=== PATIENT | female | born 1985 ===

== ENCOUNTER 2020-09-11 11:44 | Emergency (ER) | payer MEDICAID ==
[2020-09-11 11:58] VITALS: BP 125/87
[2020-09-11] MEDS ORDERED: TETANUS,DIPH,PERTUSS(ACELL) VACCINE 0.5 ML SYRINGE IM ONE (11:59)
[2020-09-11] MEDS ORDERED: IBUPROFEN 600 MG TAB PO ONE (11:59)
--- NOTE | 2020-09-11 12:49 | Emergency Department Report ---
ED Upper Extremity Inj HPI - General Chief Complaint: Extremity Injury, Upper Stated Complaint: BURNED RT MIDDLE FINGER Source: patient Mode of arrival: Ambulatory Limitations: No Limitations - History of Present Illness Initial Comments: Patient is a 34-year-old -Turkish female with no past medical history presents to the ED with complaint of acute onset persistent severe distal right middle finger pain and swelling with blisters after she accidentally touched a hot radiator of her vehicle as she checked on the engine about 2 hours ago. Patient states that the pain and the swelling have worsened since the injury occurred. Patient states that she is not up-to-date with her tetanus vaccinations. Patient denies dizziness, syncope, chest pain, shortness of breat h, nausea and vomiting, change in vision or loss of consciousness. MD Complaint: Injury to:: right (distal right middle finger burn injury with pain), finger (right middle finger) -: Sudden, hour(s) (2) Other Extremity Injury: Fingers: Right (distal right middle finger blistered burn injury), Hand: Right (right) Other Injuries: none Handedness: right Place: home Severity scale (0 -10): 8 Improves With: cold therapy Worsens With: none Context: injury (burn), burn (scalded ) Associated Symptoms: denies other symptoms. denies: weakness, numbness, neck pain, suspects foreign body, nausea/vomiting, heard/felt popping sensat Treatments Prior to Arrival: cold therapy - Related Data Previous Rx's Medication Instructions Recorded Last Taken Type Acetaminophen/Codeine [Tylenol 1 tab PO Q6H PRN #12 tab 09/11/20 Unknown Rx /Codeine # 3 tab] Bacitracin Zinc Oint [Antibiotic 1 applicatio TP TID #1 tube 09/11/20 Unknown Rx Oint] Ibuprofen [Motrin] 600 mg PO Q8H PRN #30 tablet 09/11/20 Unknown Rx Allergies Allergy/AdvReac Type Severity Reaction Status Date / Time Sulfa (Sulfonamide Allergy Swelling Verified 09/11/20 11:53 Antibiotics) ED Review of Systems ROS: Stated complaint: BURNED RT MIDDLE FINGER Other details as noted in HPI Constitutional: denies: chills, fever Eyes: denies: eye pain, eye discharge, vision change ENT: denies: ear pain, throat pain Respiratory: denies: cough, shortness of breath, wheezing Cardiovascular: denies: chest pain, palpitations Endocrine: no symptoms reported Gastrointestinal: denies: abdominal pain, nausea, vomiting, diarrhea Genitourinary: denies: urgency, dysuria, discharge Musculoskeletal: arthralgia (Distal right middle finger pain due to blistered burn injury). denies: back pain, joint swelling Skin: other (Blistered painful distal right middle finger injury). denies: rash, lesions Neurological: denies: headache, weakness, paresthesias Psychiatric: denies: anxiety, depression Hematological/Lymphatic: denies: easy bleeding, easy bruising ED Past Medical Hx - Past Medical History Previous Medical History?: No - Surgical History Additional Surgical History: C sect x 3 - Social History Smoking Status: Current Every Day Smoker Substance Use Type: Alcohol - Medications Home Medications: Home Medications Medication Instructions Recorded Confirmed Last Taken Type Acetaminophen/Codeine [Tylenol 1 tab PO Q6H PRN #12 tab 09/11/20 Unknown Rx /Codeine # 3 tab] Bacitracin Zinc Oint [Antibiotic 1 applicatio TP TID #1 tube 09/11/20 Unknown Rx Oint] Ibuprofen [Motrin] 600 mg PO Q8H PRN #30 tablet 09/11/20 Unknown Rx ED Physical Exam - General Limitations: No Limitations General appearance: alert, in no apparent distress - Head Head exam: Present: atraumatic, normocephalic, normal inspection - Eye Eye exam: Present: normal appearance, PERRL, EOMI Pupils: Present: normal accommodation - ENT ENT exam: Present: normal exam, normal orophraynx, mucous membranes moist, TM's normal bilaterally, normal external ear exam - Neck Neck exam: Present: normal inspection, full ROM - Respiratory Respiratory exam: Present: normal lung sounds bilaterally. Absent: respiratory distress, wheezes, rales, rhonchi, chest wall tenderness, accessory muscle use, decreased breath sounds - Cardiovascular Cardiovascular Exam: Present: regular rate, normal rhythm, normal heart sounds. Absent: systolic murmur, diastolic murmur, rubs, gallop - GI/Abdominal GI/Abdominal exam: Present: soft, normal bowel sounds. Absent: tenderness, guarding, hyperactive bowel sounds, hypoactive bowel sounds - Extremities Exam Extremities exam: Present: normal inspection, full ROM, tenderness (Palpable distal right middle finger tenderness due to swollen blistered burn injury), normal capillary refill. Absent: pedal edema, calf tenderness - Back Exam Back exam: Present: normal inspection, full ROM. Absent: tenderness, CVA tenderness (R), CVA tenderness (L), muscle spasm, paraspinal tenderness - Neurological Exam Neurological exam: Present: alert, oriented X3, CN II-XII intact, normal gait, reflexes normal - Psychiatric Psychiatric exam: Present: normal affect, normal mood - Skin Skin exam: Present: warm, dry, intact, normal color, other (Swollen, blistered severely tender distal right middle finger due to burn injury). Absent: rash ED Course Vital Signs 09/11/20 11:53 Temperature 99.0 F Pulse Rate 69 Respiratory 18 Rate Blood Pressure 125/87 O2 Sat by Pulse 100 Oximetry ED Medical Decision Making - Medical Decision Making This is a 34-year-old -Turkish female with no past medical history presents to the ED with complaint of acute onset persistent severe distal right middle finger pain and swelling with blisters after she accidentally touched a hot radiator of her vehicle as she checked on the engine about 2 hours ago. Patient states that the pain and the swelling have worsened since the injury occurred. Patient states that she is not up-to-date with her tetanus vaccinations. In the ED, patient is alert and oriented x3 and is not in any distress. Patient was treated for pain in the ED and also given booster tetanus vaccination in the ED. The wound was then dressed appropriately and the patient was discharged home on pain medications and antibiotic ointment, and advised to follow-up with her primary care physician in 5 to 7 days for reevaluation. Patient was advised return to the ED immediately if symptoms get worse. - Differential Diagnosis Burn injury; second-degree burn; blisters; abrasion Critical care attestation.: If time is entered above; I have spent that time in minutes in the direct care of this critically ill patient, excluding procedure time. ED Disposition Clinical Impression: Burn injury of skin of finger Second degree burn of finger of right hand Qualifiers: Encounter type: initial encounter Qualified Code(s): T23.221A - Burn of second degree of single right finger (nail) except thumb, initial encounter Disposition: DC- TO HOME OR SELFCARE Is pt being admited?: No Does the pt Need Aspirin: No Condition: Stable Instructions: Burn Care, Adult, [id number], Second-Degree Burn, Adult Additional Instructions: Apply the medication to the affected area, drink plenty of fluids, follow-up with your primary care physician in 7 to 10 days for reevaluation. Return to the ED immediately if symptoms get worse. Prescriptions: Bacitracin Zinc Oint [Antibiotic Oint] 1 applicatio TP TID #1 tube Ibuprofen [Motrin] 600 mg PO Q8H PRN #30 tablet PRN Reason: Pain Acetaminophen/Codeine [Tylenol /Codeine # 3 tab] 1 tab PO Q6H PRN #12 tab PRN Reason: Pain , Severe (7-10) Referrals: [facility] [Provider Group] - 3-5 Days Forms: Work/School Release Form(ED) Time of Disposition: 13:18 Print Language: [place]
[2020-09-11] MEDS ORDERED: NEOMY 3.5 MG/BACIT 400 UNITS/POLY B 5000 UNITS/GM OINT PACKET TP ONE (14:38)
== END 2020-09-11 14:45 | disposition home or self-care (01) ==
LOC: ED 11:44
DX: T23.221A Burn of second degree of single right finger (nail) except thumb, initial encounter (principal); F17.200 Nicotine dependence, unspecified, uncomplicated; Z88.2 Allergy status to sulfonamides; Z79.899 Other long term (current) drug therapy; Z98.890 Other specified postprocedural states; X08.8XXA Exposure to other specified smoke, fire and flames, initial encounter; Y93.89 Activity, other specified; Y92.098 Other place in other non-institutional residence as the place of occurrence of the external cause; Y99.8 Other external cause status
CPT/HCPCS: 90471; 90715; 99283; A6250

== ENCOUNTER 2021-04-01 11:50 | Emergency (ER) | payer MEDICAID ==
[2021-04-01 12:34] VITALS: BP 118/69
[2021-04-01] MEDS ORDERED: ONDANSETRON 4 MG ODT TAB PO ONE (13:05)
--- NOTE | 2021-04-01 13:15 | Emergency Department Report ---
ED General Adult HPI - General Chief complaint: Headache Stated complaint: HEADACHE Time Seen by Provider: 04/01/21 13:05 Source: patient Mode of arrival: Ambulatory Limitations: No Limitations - History of Present Illness Initial comments: 35-year-old -Wallis[place] female reports that she has been having a headache that started this morning nausea vomiting diarrhea and body aches. Denies any sore throat no cough. She states possible food poisoning she is not sure. She is vaccinated has not had a booster. She states drinking warm causes her to vomit. She denies any chest pain no shortness of breath or difficulty breathing. She denies any fever no chills. She is allergic to sulfur currently takes no meds and has no past medical history. -: This morning Location: head Severity scale (0 -10): 7 Quality: aching Consistency: constant Improves with: none Worsens with: none Associated Symptoms: nausea/vomiting, other (Diarrhea) Treatments Prior to Arrival: none - Related Data Previous Rx's Medication Instructions Recorded Last Taken Type Acetaminophen/Codeine [Tylenol 1 tab PO Q6H PRN #12 tab 09/11/20 Unknown Rx /Codeine # 3 tab] Bacitracin Zinc Oint [Antibiotic 1 applicatio TP TID #1 tube 09/11/20 Unknown Rx Oint] Ibuprofen [Motrin] 600 mg PO Q8H PRN #30 tablet 09/11/20 Unknown Rx Allergies Allergy/AdvReac Type Severity Reaction Status Date / Time Sulfa (Sulfonamide Allergy Swelling Verified 09/11/20 11:53 Antibiotics) ED Review of Systems ROS: Stated complaint: HEADACHE Other details as noted in HPI Comment: All other systems reviewed and negative ED Past Medical Hx - Past Medical History Previous Medical History?: Yes - Surgical History Past Surgical History?: Yes Additional Surgical History: C sect x 3 - Social History Smoking Status: Current Every Day Smoker Substance Use Type: Alcohol - Medications Home Medications: Home Medications Medication Instructions Recorded Confirmed Last Taken Type Acetaminophen/Codeine [Tylenol 1 tab PO Q6H PRN #12 tab 09/11/20 Unknown Rx /Codeine # 3 tab] Bacitracin Zinc Oint [Antibiotic 1 applicatio TP TID #1 tube 09/11/20 Unknown Rx Oint] Ibuprofen [Motrin] 600 mg PO Q8H PRN #30 tablet 09/11/20 Unknown Rx ED Physical Exam - General Limitations: No Limitations General appearance: alert, in no apparent distress - Head Head exam: Present: atraumatic, normocephalic - Eye Eye exam: Present: normal appearance - ENT ENT exam: Present: mucous membranes moist - Neck Neck exam: Present: normal inspection - Respiratory Respiratory exam: Present: normal lung sounds bilaterally. Absent: respiratory distress - Cardiovascular Cardiovascular Exam: Present: regular rate, normal rhythm. Absent: systolic murmur, diastolic murmur, rubs, gallop - GI/Abdominal GI/Abdominal exam: Present: soft, normal bowel sounds. Absent: distended, tenderness, guarding - Extremities Exam Extremities exam: Present: normal inspection - Back Exam Back exam: Present: normal inspection - Neurological Exam Neurological exam: Present: alert, oriented X3 - Psychiatric Psychiatric exam: Present: normal affect, normal mood - Skin Skin exam: Present: warm, dry, intact, normal color. Absent: rash ED Course Vital Signs 04/01/21 12:32 Temperature 98.3 F Pulse Rate 64 Respiratory 20 Rate Blood Pressure 118/69 O2 Sat by Pulse 100 Oximetry ED Medical Decision Making - Medical Decision Making 35-year-old -[place] female reports that she has been having a headache that started this morning nausea vomiting diarrhea and body aches. Denies any sore throat no cough. She states possible food poisoning she is not sure. She is vaccinated has not had a booster. She states drinking warm causes her to vomit. She denies any chest pain no shortness of breath or difficulty breathing. She denies any fever no chills. She is allergic to sulfur currently takes no meds and has no past medical history. Zofran 4 mg ODT and p.o. challenge. Critical care attestation.: If time is entered above; I have spent that time in minutes in the direct care of this critically ill patient, excluding procedure time. ED Disposition Clinical Impression: Headache, Nausea and vomiting Disposition: 07 LEFT AWOL/ELOPED Is pt being admited?: No Does the pt Need Aspirin: No Condition: Undetermined Instructions: Nausea and Vomiting, Adult, [id number]
[2021-04-01] MEDS ORDERED: IBUPROFEN 600 MG TAB PO ONE (14:10)
== END 2021-04-01 15:20 | disposition left against medical advice (07) ==
LOC: ED 11:50
DX: R51.9 Headache, unspecified (principal); R11.2 Nausea with vomiting, unspecified; F17.200 Nicotine dependence, unspecified, uncomplicated; Z88.2 Allergy status to sulfonamides; F10.20 Alcohol dependence, uncomplicated
CPT/HCPCS: 99282; J3490; Q0162

== ENCOUNTER 2021-08-11 07:05 | Emergency (ER) | payer MEDICAID ==
[2021-08-11 08:03] VITALS: BP 120/88
== END 2021-08-11 11:22 | disposition left against medical advice (07) ==
LOC: ED 07:05
DX: R52 Pain, unspecified (principal); Z53.21 Procedure and treatment not carried out due to patient leaving prior to being seen by health care provider

== ENCOUNTER 2021-12-13 11:29 | Emergency (ER) | payer MEDICAID ==
[2021-12-13 12:21] VITALS: BP 125/86
--- NOTE | 2021-12-13 13:01 | XRay Report ---
CHEST 2 VIEWS INDICATION / CLINICAL INFORMATION: Chest Pain. COMPARISON: None available. FINDINGS: SUPPORT DEVICES: None. HEART / MEDIASTINUM: No significant abnormality. LUNGS / PLEURA: No significant pulmonary or pleural abnormality. No pneumothorax. ADDITIONAL FINDINGS: No significant additional findings. IMPRESSION: 1. No acute findings. Signer Name: Harjinder Davis MD Signed: 12/13/2021 12:57 PM Workstation Name: [id number]
--- NOTE | 2021-12-15 09:38 | Electrocardiograph Report ---
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
== END 2021-12-13 17:39 | disposition left against medical advice (07) ==
LOC: ED 11:29
DX: R07.89 Other chest pain (principal); R20.0 Anesthesia of skin; R06.02 Shortness of breath; Z53.21 Procedure and treatment not carried out due to patient leaving prior to being seen by health care provider
CPT/HCPCS: 71046; 93005